=== PATIENT | female | born 1970 | race Caucasian/White ===

== ENCOUNTER 2017-08-22 10:19 | Emergency (ER) | payer SELFPAY ==
[~2017-08-22] VITALS: Ht 157.5 cm; Wt 72.1 kg
[~2017-08-22 10:19] MED LIST: GLU500 PO; PREDNISONE50 MG PO
[2017-08-22 10:22] VITALS: Ht 157.5 cm; Wt 72.1 kg
[2017-08-22 10:59] VITALS: BP 108/55
== END 2017-08-22 10:59 | disposition home or self-care (01) ==
LOC: ED 10:19
DX: R21 Rash and other nonspecific skin eruption (principal); E11.9 Type 2 diabetes mellitus without complications